=== PATIENT | male | born 1940 | race Caucasian/White ===

== ENCOUNTER 2021-04-07 10:31 | Inpatient (IN) | payer MEDICARE ==
[~2021-04-07] VITALS: Ht 170.2 cm; Wt 62.4 kg
[2021-04-07 11:16] LABS: ALBUMIN 3.4 g/dL (3.4-5.0); BILIRUBIN - TOTAL 0.5 mg/dL (0.2-1.0); BUN/CREAT RATIO (CALC) 23.7 RATIO; CREATININE 0.93 mg/dL (0.67-1.17); GLOBULIN (CALCULATION) 3.3 g/dL; POTASSIUM 4.9 mmol/L (3.5-5.1); TOTAL PROTEIN 6.7 g/dL (6.4-8.2)
[2021-04-07 11:21] LABS: PTT 22.2 SECONDS (24.4-34.7)
[2021-04-07 11:23] LABS: INR 1.06 (0.9-1.2); LACTIC ACID 3.1 mmol/L (0.4-1.9); PROTHROMBIN TIME 13.2 SECONDS (11.8-13.4)
[2021-04-07 11:24] LABS: BASOPHIL 0.8 % (0-2); EOSINOPHIL 0.1 % (0-7); HCT 33.4 % (42.0-52.0); HGB 11.2 g/dl (13.2-18.0); LYMPHOCYTE 5.9 % (15-48); MCH 40.6 pg (25.0-31.0); MCHC 33.5 g/dL (32.0-36.0); MONOCYTE 11.2 % (0-12); MPV 10.9 fL (6.0-9.5); NEUTROPHIL 78.6 % (41-80); NRBC 0; PLT 271 K/uL (150-400); RBC 2.76 M/uL (4.70-6.00); RDW 15.5 % (11.5-14.0); WBC 13.2 K/uL (4.0-10.5)
[2021-04-07 16:32] LABS: BILIRUBIN NEGATIVE (NEGATIVE); BLOOD NEGATIVE Ery/uL (NEGATIVE); CLARITY CLEAR (CLEAR); COLOR YELLOW (YELLOW); GLUCOSE (U) NORMAL (NORMAL); LEUKOCYTES NEGATIVE Leu/uL (NEGATIVE); NITRITE NEGATIVE (NEGATIVE); PROTEIN NEGATIVE (NEGATIVE); UROBILINOGEN 0.2 mg/dL (0.2-1.0); pH 7.5 (5.0-9.0)
[2021-04-07 18:52] LABS: BUN/CREAT RATIO (CALC) 22.1 RATIO; CREATININE 0.77 mg/dL (0.67-1.17); POTASSIUM 4.2 mmol/L (3.5-5.1)
[2021-04-08 06:03] LABS: BASOPHIL 0.4 % (0-2); EOSINOPHIL 0.2 % (0-7); HCT 25.4 % (42.0-52.0); HGB 8.2 g/dl (13.2-18.0); LYMPHOCYTE 7.8 % (15-48); MCHC 32.3 g/dL (32.0-36.0); MCV 123.9 fL (78.0-100.0); MPV 10.2 fL (6.0-9.5); NEUTROPHIL 76.3 % (41-80); NRBC 0; PLT 216 K/uL (150-400); RBC 2.05 M/uL (4.70-6.00); RDW 15.6 % (11.5-14.0)
[2021-04-08 06:06] LABS: WBC 10.8 K/uL (4.0-10.5)
[2021-04-08 06:33] LABS: ALBUMIN 2.5 g/dL (3.4-5.0); BILIRUBIN - TOTAL 0.4 mg/dL (0.2-1.0); BUN/CREAT RATIO (CALC) 19.5 RATIO; CREATININE 0.77 mg/dL (0.67-1.17); GLOBULIN (CALCULATION) 2.5 g/dL; MAGNESIUM 1.3 mg/dL (1.8-2.4); PHOSPHORUS 2.6 mg/dL (2.6-4.7); POTASSIUM 4.3 mmol/L (3.5-5.1)
--- NOTE | 2021-04-08 16:56 | NUR ---
04/08/21 Mr. Sandhu lives at home with his spouse, He has a rw, WC, and s. chair. Mr. Sandhu not his spouse are interested in services. Mr. Sandhu reports that his spouse takes excellent care of him. - Will monitor for 02 needs.
[2021-04-09 07:12] LABS: BASOPHIL 0.5 % (0-2); EOSINOPHIL 0.2 % (0-7); HCT 24.6 % (42.0-52.0); HGB 8.1 g/dl (13.2-18.0); LYMPHOCYTE 3.7 % (15-48); MCH 39.7 pg (25.0-31.0); MCHC 32.9 g/dL (32.0-36.0); MCV 120.6 fL (78.0-100.0); MONOCYTE 16.8 % (0-12); MPV 10.2 fL (6.0-9.5); NEUTROPHIL 76.5 % (41-80); NRBC 0; PLT 195 K/uL (150-400); RBC 2.04 M/uL (4.70-6.00); RDW 15.3 % (11.5-14.0); WBC 12.5 K/uL (4.0-10.5)
[2021-04-09 07:43] LABS: ALBUMIN 2.3 g/dL (3.4-5.0); BILIRUBIN - TOTAL 0.4 mg/dL (0.2-1.0); BUN/CREAT RATIO (CALC) 17.2 RATIO; CREATININE 0.58 mg/dL (0.67-1.17); GLOBULIN (CALCULATION) 2.9 g/dL; MAGNESIUM 1.6 mg/dL (1.8-2.4); POTASSIUM 3.4 mmol/L (3.5-5.1); TOTAL PROTEIN 5.2 g/dL (6.4-8.2)
[2021-04-10 06:44] LABS: BASOPHIL 0.4 % (0-2); EOSINOPHIL 0.3 % (0-7); HCT 25.7 % (42.0-52.0); HGB 8.6 g/dl (13.2-18.0); MCH 40.2 pg (25.0-31.0); MCHC 33.5 g/dL (32.0-36.0); MCV 120.1 fL (78.0-100.0); MONOCYTE 16.1 % (0-12); MPV 10.1 fL (6.0-9.5); NEUTROPHIL 74.9 % (41-80); NRBC 0; PLT 209 K/uL (150-400); RBC 2.14 M/uL (4.70-6.00); RDW 15.4 % (11.5-14.0); WBC 11.4 K/uL (4.0-10.5)
[2021-04-10 07:03] LABS: ALBUMIN 2.3 g/dL (3.4-5.0); BILIRUBIN - TOTAL 0.3 mg/dL (0.2-1.0); BUN/CREAT RATIO (CALC) 13.6 RATIO; CREATININE 0.59 mg/dL (0.67-1.17); GLOBULIN (CALCULATION) 2.5 g/dL; MAGNESIUM 1.6 mg/dL (1.8-2.4); POTASSIUM 3.9 mmol/L (3.5-5.1); TOTAL PROTEIN 4.8 g/dL (6.4-8.2)
--- NOTE | 2021-04-10 16:32 | NUR ---
TC TO [facility]. HE ADVISED THAT PT. IS ON 4 LITERS OXYMIZER. PT MAY BE ON A LOWER LEVEL BY THE TIME HE DISCHARGES HOME. ADVISED DONALD AT THE DESK THAT SOMEONE WILL NEED TO ORDER PT. HOME O2 BEFORE DISCHARGE.
[2021-04-11 04:30] LABS: BASOPHIL 0.8 % (0-2); EOSINOPHIL 0.3 % (0-7); HGB 8.6 g/dl (13.2-18.0); LYMPHOCYTE 4.9 % (15-48); MCH 39.8 pg (25.0-31.0); MCHC 33.1 g/dL (32.0-36.0); MCV 120.4 fL (78.0-100.0); MONOCYTE 13.8 % (0-12); MPV 10.4 fL (6.0-9.5); NEUTROPHIL 74.8 % (41-80); NRBC 0; PLT 210 K/uL (150-400); RBC 2.16 M/uL (4.70-6.00); RDW 15.3 % (11.5-14.0); WBC 12.4 K/uL (4.0-10.5)
[2021-04-11 04:52] LABS: ALBUMIN 2.4 g/dL (3.4-5.0); BILIRUBIN - TOTAL 0.3 mg/dL (0.2-1.0); BUN/CREAT RATIO (CALC) 20.7 RATIO; CREATININE 0.58 mg/dL (0.67-1.17); MAGNESIUM 1.8 mg/dL (1.8-2.4); POTASSIUM 3.5 mmol/L (3.5-5.1); TOTAL PROTEIN 5.4 g/dL (6.4-8.2)
[2021-04-12 04:07] LABS: BASOPHIL 0.7 % (0-2); EOSINOPHIL 0.3 % (0-7); HCT 25.7 % (42.0-52.0); HGB 8.6 g/dl (13.2-18.0); LYMPHOCYTE 7.2 % (15-48); MCH 40.2 pg (25.0-31.0); MCHC 33.5 g/dL (32.0-36.0); MCV 120.1 fL (78.0-100.0); MONOCYTE 13.6 % (0-12); MPV 10.2 fL (6.0-9.5); NRBC 0; PLT 215 K/uL (150-400); RBC 2.14 M/uL (4.70-6.00); RDW 15.7 % (11.5-14.0); WBC 11.2 K/uL (4.0-10.5)
[2021-04-12 04:15] LABS: NEUTROPHIL 71.9 % (41-80)
[2021-04-12 04:34] LABS: ALBUMIN 2.5 g/dL (3.4-5.0); BILIRUBIN - TOTAL 0.3 mg/dL (0.2-1.0); BUN/CREAT RATIO (CALC) 17.5 RATIO; CREATININE 0.63 mg/dL (0.67-1.17); GLOBULIN (CALCULATION) 3.1 g/dL; POTASSIUM 3.7 mmol/L (3.5-5.1); TOTAL PROTEIN 5.6 g/dL (6.4-8.2)
[2021-04-13] MEDS ORDERED: MAG-OXIDE 400M400 MG PO (12:10)
[2021-04-13] MEDS ORDERED: DULERA 100 MCG8.8 GM INH ×2 (12:10→15:33)
[2021-04-13] MEDS ORDERED: MAGNESIUM400 MG PO (15:33)
== END 2021-04-13 16:05 | disposition home or self-care (01) | DRG 193 ==
LOC: FER 10:31 → FTCU 04-08 04:13 → FMS 04-12 13:17
PROVIDERS: Internal Medicine; Nurse Practitioner; ADMIT Family Medicine
DX: J18.9 Pneumonia, unspecified organism (principal); J96.01 Acute respiratory failure with hypoxia; J44.0 Chronic obstructive pulmonary disease with (acute) lower respiratory infection; J44.1 Chronic obstructive pulmonary disease with (acute) exacerbation; E83.52 Hypercalcemia; Z20.822 Contact with and (suspected) exposure to COVID-19; C61 Malignant neoplasm of prostate; D63.8 Anemia in other chronic diseases classified elsewhere; R91.8 Other nonspecific abnormal finding of lung field; M19.90 Unspecified osteoarthritis, unspecified site; F17.210 Nicotine dependence, cigarettes, uncomplicated; Z79.52 Long term (current) use of systemic steroids; Z79.899 Other long term (current) drug therapy; Z79.890 Hormone replacement therapy; Z98.1 Arthrodesis status; Z98.890 Other specified postprocedural states
CPT/HCPCS: 36415; 36600; 71045; 71275; 80048; 80053; 80202; 81003; 82607; 82728; 82803; 83605; 83690; 83735; 83880; 84100; 84145; 84153; 84484; 85025; 85610; 85730; 86140; 87040; 93005; 94010; 94640; 94667; 94668; 94760; 94762; 96372; 97110; 97163; 97166; 97530; 97530-GP; 97535; J0630; J0692; J1100; J1650; J2405; J2543; J2930; J3370; J3475; J3489; J7030; J7050; J7120; J7512; Q9967; U0002

== ENCOUNTER 2021-05-05 10:22 | Day surgery (SDCO) | payer MEDICARE ==
[~2021-05-05] VITALS: Ht 170.2 cm; Wt 87.1 kg
[~2021-05-05 10:22] MED LIST: DULERA 100 MCG8.8 GM INH; MAG-OXIDE 400M400 MG PO; MAGNESIUM400 MG PO
[2021-05-05 11:10] LABS: BASOPHIL 0.8 % (0-2); EOSINOPHIL 0.2 % (0-7); HCT 29.3 % (42.0-52.0); HGB 9.4 g/dl (13.2-18.0); LYMPHOCYTE 4.2 % (15-48); MCH 39.3 pg (25.0-31.0); MCHC 32.1 g/dL (32.0-36.0); MCV 122.6 fL (78.0-100.0); MONOCYTE 11.9 % (0-12); MPV 10.5 fL (6.0-9.5); NEUTROPHIL 76.8 % (41-80); NRBC 0.2; PLT 279 K/uL (150-400); RBC 2.39 M/uL (4.70-6.00); RDW 15.7 % (11.5-14.0); WBC 10.7 K/uL (4.0-10.5)
[2021-05-05 11:33] LABS: CREATININE 0.62 mg/dL (0.67-1.17)
[2021-05-05 12:05] LABS: INR 1.21 (0.9-1.2); PROTHROMBIN TIME 14.7 SECONDS (11.8-13.4); PTT 24.1 SECONDS (24.4-34.7)
[2021-05-05] MEDS ORDERED: LOPRESSOR50 MG PO (14:51)
[2021-05-05] MEDS ORDERED: SYNTHROID100 MCG PO (17:30)
[2021-05-05] MEDS ORDERED: PREDNISONE 5MG T5 MG PO (17:31)
[2021-05-05] MEDS ORDERED: COMPAZINE10 MG PO (17:32)
[2021-05-06 06:15] LABS: BASOPHIL 0.5 % (0-2); EOSINOPHIL 0.2 % (0-7); HCT 24.4 % (42.0-52.0); HGB 7.7 g/dl (13.2-18.0); LYMPHOCYTE 8.8 % (15-48); MCH 38.9 pg (25.0-31.0); MCHC 31.6 g/dL (32.0-36.0); MCV 123.2 fL (78.0-100.0); MONOCYTE 20.1 % (0-12); MPV 9.8 fL (6.0-9.5); NEUTROPHIL 65.8 % (41-80); NRBC 0.2; PLT 253 K/uL (150-400); RBC 1.98 M/uL (4.70-6.00); RDW 15.9 % (11.5-14.0)
[2021-05-06 06:17] LABS: WBC 9.7 K/uL (4.0-10.5)
[2021-05-06 06:36] LABS: BUN/CREAT RATIO (CALC) 23.2 RATIO; CREATININE 0.56 mg/dL (0.67-1.17); POTASSIUM 4.1 mmol/L (3.5-5.1)
--- NOTE | 2021-05-06 09:47 | NUR ---
05/06/21 Mr. Sandhu lives at home with his spouse. He has a rw and s. chair. A referral was made to [facility] for home 02 per patient choice. - Report given to DEMARCO Worrell RN.
[2021-05-06] MEDS ORDERED: PREDNISONE20 MG PO (11:47)
[2021-05-06] MEDS ORDERED: DULERA 100 MCG8.8 GM INH (11:47)
== END 2021-05-06 16:30 | disposition home or self-care (01) ==
LOC: FER 10:22 → FTCU 12:13 → FICU 12:13 → FTCU 19:33
PROVIDERS: Emergency Medicine; ADMIT Internal Medicine
DX: R04.89 Hemorrhage from other sites in respiratory passages (principal); J44.9 Chronic obstructive pulmonary disease, unspecified; C61 Malignant neoplasm of prostate; R09.02 Hypoxemia; R91.8 Other nonspecific abnormal finding of lung field; M19.90 Unspecified osteoarthritis, unspecified site; Z98.1 Arthrodesis status; F17.210 Nicotine dependence, cigarettes, uncomplicated; Z79.899 Other long term (current) drug therapy
CPT/HCPCS: 36415; 36600; 71045; 80048; 82803; 85025; 85610; 85730; 94640; G0378; J7030; J7040; J7512; Q0164

== ENCOUNTER 2021-05-25 16:36 | Inpatient (IN) | payer MEDICARE ==
[~2021-05-25] VITALS: Ht 170.2 cm; Wt 52.9 kg
[~2021-05-25 16:36] MED LIST changes: +COMPAZINE10 MG PO; +LOPRESSOR50 MG PO; +PREDNISONE 5MG T5 MG PO; +PREDNISONE20 MG PO; +SYNTHROID100 MCG PO
[2021-05-25 17:20] LABS: EOSINOPHIL 0.1 % (0-7); HCT 29.9 % (42.0-52.0); HGB 9.7 g/dl (13.2-18.0); LYMPHOCYTE 7.6 % (15-48); MCH 37.3 pg (25.0-31.0); MCHC 32.4 g/dL (32.0-36.0); MPV 11.3 fL (6.0-9.5); NRBC 0.2; PLT 158 K/uL (150-400); RDW 17.3 % (11.5-14.0); WBC 9.2 K/uL (4.0-10.5)
[2021-05-25 17:38] LABS: BILIRUBIN - TOTAL 0.7 mg/dL (0.2-1.0); BUN/CREAT RATIO (CALC) 37.1 RATIO; CREATININE 0.62 mg/dL (0.67-1.17); GLOBULIN (CALCULATION) 3.8 g/dL; POTASSIUM 4.8 mmol/L (3.5-5.1); TOTAL PROTEIN 6.8 g/dL (6.4-8.2)
[2021-05-25 18:02] LABS: LACTIC ACID 1.6 mmol/L (0.4-1.9)
[2021-05-26 06:16] LABS: BASOPHIL 0.2 % (0-2); EOSINOPHIL 0.1 % (0-7); HCT 23.8 % (42.0-52.0); HGB 7.8 g/dl (13.2-18.0); LYMPHOCYTE 2.2 % (15-48); MCH 37.3 pg (25.0-31.0); MCHC 32.8 g/dL (32.0-36.0); MCV 113.9 fL (78.0-100.0); MONOCYTE 8.5 % (0-12); MPV 9.7 fL (6.0-9.5); PLT 176 K/uL (150-400); RBC 2.09 M/uL (4.70-6.00); RDW 17.2 % (11.5-14.0); WBC 8.4 K/uL (4.0-10.5)
[2021-05-26 06:43] LABS: BUN/CREAT RATIO (CALC) 20.4 RATIO; CREATININE 0.54 mg/dL (0.67-1.17); MAGNESIUM 1.9 mg/dL (1.8-2.4)
[2021-05-26 07:49] LABS: BAND 1 % (0-10); LYMPHOCYTE(M) 6 % (15-48); MONOCYTE(M) 2 % (0-12); MYELOCYTE 1; NEUTROPHILS(M) 86 % (41-80); TOTAL CELL COUNT 100; VARIANT LYMPHOCYTE 4
[2021-05-26 07:53] LABS: PLATELET ESTIMATE NORMAL; PLATELET MORPHOLOGY NORMAL
[2021-05-26 07:55] LABS: DACRYOCYTES (TEAR DROP CELLS) 1+; ELLIPTOCYTES (OVALOCYTES) 1+; STOMATOCYTE 1+
[2021-05-26 08:37] LABS: HCT 23.5 % (42.0-52.0); HGB 7.7 g/dL (13.2-18.0)
[2021-05-27 06:28] LABS: HCT 21.8 % (42.0-52.0); MCH 36.6 pg (25.0-31.0); MCHC 32.1 g/dL (32.0-36.0); MCV 114.1 fL (78.0-100.0); MPV 9.9 fL (6.0-9.5); RBC 1.91 M/uL (4.70-6.00); RDW 17.2 % (11.5-14.0); WBC 7.8 K/uL (4.0-10.5)
[2021-05-27 06:48] LABS: BUN/CREAT RATIO (CALC) 10.4 RATIO; CREATININE 0.48 mg/dL (0.67-1.17); POTASSIUM 3.7 mmol/L (3.5-5.1)
--- NOTE | 2021-05-27 09:51 | NUR ---
05/27/21 [facility]. Vicki Estvees, [facility] licensed clinical social worker, reports that Mr. Sandhu has been indecisive about Hospice services which was recommended by the [facility]. - Mr. Sandhu stated that there is no more treatment to benifit him and he would like Hospice services. Hospice will meet with Moe Sandhu at 1:00 today. - Mr. Sandhu has home 02, portables, wc, and rolling walker. Mr. Sandhu decided for Hospice to evaluate for other DME needs in the home. - Manjit, patient's stepson, reports to be available to assist his mother in caring for Mr. Sandhu as needed.
--- NOTE | 2021-05-27 13:52 | NUR ---
05/27/21 Hospice has accepted Mr. Sandhu for admission today. Report given to DEMARCO Worrell, [facility].
[2021-05-27] MEDS ORDERED: MORPHINE 110 MG/0.5 PO ×2 (16:50→16:57)
== END 2021-05-27 18:19 | disposition hospice, home (50) | DRG 641 ==
LOC: FER 16:36 → FTCU 22:48
PROVIDERS: Emergency Medicine; Hospitalist; Nurse Practitioner; ADMIT Internal Medicine
DX: E86.0 Dehydration (principal); C79.51 Secondary malignant neoplasm of bone; C78.00 Secondary malignant neoplasm of unspecified lung; E83.52 Hypercalcemia; E78.5 Hyperlipidemia, unspecified; Z20.822 Contact with and (suspected) exposure to COVID-19; R13.10 Dysphagia, unspecified; C61 Malignant neoplasm of prostate; J44.9 Chronic obstructive pulmonary disease, unspecified; M19.90 Unspecified osteoarthritis, unspecified site; D63.8 Anemia in other chronic diseases classified elsewhere; Z92.3 Personal history of irradiation; Z92.21 Personal history of antineoplastic chemotherapy; Z98.1 Arthrodesis status; Z79.890 Hormone replacement therapy; Z79.52 Long term (current) use of systemic steroids; Z79.899 Other long term (current) drug therapy; Z90.89 Acquired absence of other organs; Z98.890 Other specified postprocedural states; Z99.81 Dependence on supplemental oxygen
CPT/HCPCS: 36415; 71260; 80048; 80053; 82150; 83605; 83735; 83970; 84100; 84145; 84484; 85014; 85018; 85025; 87040; 87077; 93005; 94010; 94640; 96374; J0630; J1650; J2270; J2405; J3489; J7030; Q9967; U0002